=== PATIENT | female | born 1970 | race Caucasian/White ===

== ENCOUNTER 2024-02-21 17:00 | Emergency (ER) | payer OTHER ==
[~2024-02-21] VITALS: Ht 175.2 cm; Wt 133.4 kg
[2024-02-21] MEDS ORDERED: Acetaminophen/Hydrocodone 5 MG/325 MG TABLET PO ONE (17:35)
[2024-02-21] MEDS ORDERED: PREDNISONE20 M1 PO (17:35)
[2024-02-21] MEDS ORDERED: methylPREDNISolone sod succ 125 MG VIAL IM ONE (17:35)
== END 2024-02-21 18:00 | disposition home or self-care (01) ==
LOC: ED 17:00
DX: M25.561 Pain in right knee (principal); G89.29 Other chronic pain; I10 Essential (primary) hypertension; Z98.890 Other specified postprocedural states; Z90.49 Acquired absence of other specified parts of digestive tract

== ENCOUNTER 2024-04-16 20:38 | Emergency (ER) | payer OTHER ==
[~2024-04-16] VITALS: Ht 170.1 cm; Wt 95.3 kg
[~2024-04-16 20:38] MED LIST: PREDNISONE20 M1 PO
[2024-04-16] MEDS ORDERED: CEPHALEXIN500 M1 PO (20:57)
[2024-04-16] MEDS ORDERED: CEPHALEXIN 500 MG CAP PO ONE (21:00)
[2024-04-16] MEDS ORDERED: methylPREDNISolone sod succ 125 MG VIAL IM ONE (21:00)
== END 2024-04-16 22:04 | disposition home or self-care (01) ==
LOC: ED 20:38
DX: L03.113 Cellulitis of right upper limb (principal); L25.9 Unspecified contact dermatitis, unspecified cause; I10 Essential (primary) hypertension; Z98.890 Other specified postprocedural states; Z90.49 Acquired absence of other specified parts of digestive tract

== ENCOUNTER 2024-11-05 16:14 | Emergency (ER) | payer OTHER ==
[~2024-11-05] VITALS: Ht 175.2 cm; Wt 133.8 kg
[~2024-11-05 16:14] MED LIST changes: +CEPHALEXIN500 M1 PO
[2024-11-05] MEDS ORDERED: ACETAMINOPHEN 325 MG TAB PO ONE (16:50)
[2024-11-05] MEDS ORDERED: PAXLOVID 300-11 EAC3 PO (17:58)
== END 2024-11-05 18:14 | disposition home or self-care (01) ==
LOC: ED 16:14
DX: U07.1 COVID-19 (principal); I10 Essential (primary) hypertension; Z90.49 Acquired absence of other specified parts of digestive tract; Z98.890 Other specified postprocedural states